=== PATIENT | female | born 1975 | race Caucasian/White ===

== ENCOUNTER → 2023-07-04 15:10 | Outpatient (REF) | payer MEDICARE, SELFPAY | LOC: HWRAD 15:10 | PROVIDERS: ATTENDING PHYSICIAN Surgery; FAMILY PHYSICIAN Physician Assistant | DX: N20.0 Calculus of kidney (principal) | CPT/HCPCS: 74018 ==

== ENCOUNTER → 2024-05-16 13:49 | Outpatient (REF) | payer MEDICARE, SELFPAY | LOC: HWRAD 13:49 | PROVIDERS: ATTENDING PHYSICIAN Surgery; FAMILY PHYSICIAN Physician Assistant | DX: N20.0 Calculus of kidney (principal) | CPT/HCPCS: 76775 ==